=== PATIENT | female | born 2000 | race Hispanic/Latino ===

== ENCOUNTER 2023-03-24 14:12 | Emergency (ER) | payer OTHER, SELFPAY ==
[2023-03-24] MEDS ORDERED: Ibuprofen 200 MG TAB ONE (16:53)
== END 2023-03-24 17:18 | disposition home or self-care (01) ==
LOC: CSHERS 14:12
DX: T14.8XXA Other injury of unspecified body region, initial encounter (principal); M54.50 Low back pain, unspecified; V49.40XA Driver injured in collision with unspecified motor vehicles in traffic accident, initial encounter
CPT/HCPCS: 72072; 72100